=== PATIENT | female | born 1940 | race Caucasian/White ===

== ENCOUNTER → 2018-04-14 | Outpatient (CLI) | payer MEDICARE, OTHER ==
[~2018-04-14] MED LIST: CHLO25TA22 PO; POTASSIUM CHLORIDE PO
--- NOTE | 2018-04-14 12:59 | Diagnostic Imaging Report ---
INDICATION: Routine screening. COMPARISON: 06/01/2014 and 05/28/2013. TECHNIQUE: 2D and 3D bilateral screening mammography was performed with CAD. FINDINGS: Both breasts remain heterogeneously dense, limiting the sensitivity of mammography. There is a focal density in the right breast on the CC view just lateral to the nipple line at mid depth. This appears to be superiorly located on the MLO view. Additional views are recommended. The left breast is unremarkable. There are benign calcifications present. No suspicious calcifications are seen. The axillae are unremarkable. IMPRESSION: Right breast density. Additional views and ultrasound are recommended for further evaluation. ACR BI-RADS Category 0: Incomplete. (Needs additional imaging evaluation). Result letter will be mailed to the patient. Note: At least 10% of breast cancer is not imaged by mammography. Dictated by: Dictated on workstation # [id number]
== END ==
LOC: RAD 11:30
PROVIDERS: ATTEND Nurse Practitioner Family
DX: Z12.31 Encounter for screening mammogram for malignant neoplasm of breast (principal); R92.2 Inconclusive mammogram
CPT/HCPCS: 77067

== ENCOUNTER → 2018-04-20 | Outpatient (CLI) | payer MEDICARE, OTHER ==
--- NOTE | 2018-04-21 19:29 | Diagnostic Imaging Report ---
Indication: Right breast density. Patient presents for additional views. Correlation is made with recent screening study from 04/14/2018. 2-D and 3-D unilateral right diagnostic mammography was performed with CAD. This included conventional 90 degree lateral view as well as spot compression ML and CC views. The additional views demonstrate persistent nodular density in the upper and outer aspects of the right breast at mid depth. No suspicious calcifications are seen. No other masses are identified. Impression: BI-RADS 0. Persistent circumscribed density in the upper outer right breast mid depth. Further evaluation with ultrasound is recommended. ACR BI-RADS Category 0: Incomplete. (Needs additional imaging evaluation). Result letter will be mailed to the patient. Note: At least 10% of breast cancer is not imaged by mammography. Dictated by: Dictated on workstation # [id number]
--- NOTE | 2018-04-21 19:35 | Diagnostic Imaging Report ---
Indication: Right breast density. This study is performed for further evaluation. Correlation is made with diagnostic mammogram earlier the same day. Sonographic interrogation of the upper outer right breast approximately 4-5 cm from the nipple was performed. There is a lymph node at the 10 o'clock location 5 cm from the nipple measuring 6 mm x 3 mm x 4 mm. This does correlate in size and location to the density noted mammographically. No other abnormality is seen. Impression: BI-RADS 2 Intraparenchymal lymph node 10 o'clock location of the right breast corresponding to the mammographic density. The patient may return to routine annual screening mammography. ACR BI-RADS Category 2: Benign findings. Result letter will be mailed to the patient. Note: At least 10% of breast cancer is not imaged by mammography. Dictated by: Dictated on workstation # [id number]
== END ==
LOC: RAD 13:39
PROVIDERS: ATTEND Nurse Practitioner Family
DX: R92.2 Inconclusive mammogram (principal)

== ENCOUNTER 2019-03-27 10:25 | Emergency (ER) | payer MEDICARE, OTHER ==
[~2019-03-27] VITALS: Ht 167.7 cm; Wt 59.1 kg
--- NOTE | 2019-03-27 10:53 | ED Headache ---
General Chief Complaint: Head/Cervical Problems Stated Complaint: FALL - HEAD PAIN Nursing Triage Note: pt amb to rm 10 with complaint of head injury. pt states she fell yesterday at home on gravel. states had no loc. denies being on blood thinners. pt is concered about swelling on forehead. states she was sent over by [facility]. Nursing Sepsis Screen: No Definite Risk Source: patient Exam Limitations: no limitations History of Present Illness Date Seen by Provider: Mar 27, 2019 Time Seen by Provider: 10:48 Initial Comments To ER with reports of a head injury. [place] after tripping. She struck the forehead, the upper and lower lips. She is not on blood thinners. The fall occurred yesterday, no loss of consciousness no headache no nausea no vomiting no confusion. She is concerned because her had a brain bleed. Severity/Quality: moderate Location: frontal Prior Headaches/Recent Trauma: head trauma > 24 hrs ago Associated Symptoms: No nausea/vomiting Allergies and Home Medications Allergies Coded Allergies: No Known Drug Allergies (Unverified , 10/27/12) Home Medications Chlorthalidone 25 Mg Tablet, 25 MG PO DAILY, (Reported) [Potassium Chloride] , 10 MEQ PO DAILY, (Reported) Patient Home Medication List Home Medication List Reviewed: Yes Review of Systems Review of Systems Constitutional: see HPI Eyes: No Symptoms Reported Ears, Nose, Mouth, Throat: no symptoms reported Respiratory: no symptoms reported Cardiovascular: no symptoms reported Genitourinary: no symptoms reported Musculoskeletal: no symptoms reported Skin: no symptoms reported Psychiatric/Neurological: No Symptoms Reported Past Hxouedk-Djwoiy-Ttucbh Hx Patient Social History Alcohol Use: Occasionally Uses Alcohol Beverage of Choice: Beer Recreational Drug Use: No Smoking Status: Never a Smoker Recent Foreign Travel: No Contact w/Someone Who Travel: No Recent Infectious Disease Expo: No Recent Hopitalizations: No Physical Abuse: No Sexual Abuse: No Mistreated: No Fear: No Immunizations Up To Date Tetanus Booster (TDap): Unknown PED Vaccines UTD: Yes Seasonal Allergies Seasonal Allergies: No Past Medical History Surgeries: Yes Eye Surgery, Orthopedic Respiratory: No Cardiac: Yes High Cholesterol, Hypertension Neurological: No Gastrointestinal: No Musculoskeletal: Yes (ARTHRITIS) Endocrine: No Integumentary: No Physical Exam Vital Signs Vital Signs - First Documented 03/27/19 10:35 Temp 36.5 Pulse 66 Resp 17 B/P (MAP) 168/82 (110) Pulse Ox 98 O2 Delivery Room Air Capillary Refill : Less Than 3 Seconds Height, Weight, BMI Height: '" Weight: lbs. oz. kg; 21.00 BMI Method: General Appearance: WD/WN, no apparent distress HEENT: PERRL/EOMI, normal ENT inspection, TMs normal, other (small ecchymosis to the center of the forehead, abrasion to the midline top lip and midline bottom lip. No malocclusion of the jaw) Neck: non-tender, full range of motion; No tender lateral, No tender midline Respiratory: normal breath sounds, no respiratory distress, no accessory muscle use Gastrointestinal: normal bowel sounds, non tender Extremities: normal range of motion, non-tender Psychiatric: alert, oriented x 3 Crainal Nerves: normal hearing, normal speech, PERRL Skin: normal color, warm/dry Progress/Results/Core Measures Results/Orders My Orders Orders - JARED MONTANO APRN Ct Head/Cervical Spine Wo (03/27/19 10:48) Vital Signs/I&O 03/27/19 10:35 Temp 36.5 Pulse 66 Resp 17 B/P (MAP) 168/82 (110) Pulse Ox 98 O2 Delivery Room Air Blood Pressure Mean: 110 Departure Impression Primary Impression: Minor head injury Qualified Codes: S09.90XA - Unspecified injury of head, initial encounter Disposition: 01 HOME, SELF-CARE Condition: Stable Departure-Patient Inst. Decision time for Depature: 10:52 Referrals: JOANA CHAVEZ MD (PCP/Family) Primary Care Physician Patient Instructions: Minor Head Injury Add. Discharge Instructions: 1. Return to ER for any concerns 2. Follow-up with your doctor next week 3. All discharge instructions reviewed with patient and/or family. Voiced understanding. JARED MONTANO APRN Mar 27, 2019 10:52
--- NOTE | 2019-03-27 11:18 | Diagnostic Imaging Report ---
PROCEDURE: CT head without contrast. TECHNIQUE: Multiple contiguous axial images were obtained through the brain without the use of intravenous contrast. Auto Exposure Controls were utilized during the CT exam to meet ALARA standards for radiation dose reduction. INDICATION: Fall with swelling to the forehead. No prior studies are available for comparison. The ventricles and sulci are consistent with the patient's age. There is moderate periventricular hypodensity noted consistent with senescent change. No sulcal effacement or midline shift is detected. No acute intra-axial or extra-axial hemorrhage is identified. No calvarial fracture is seen. There is mild soft tissue swelling in the right frontal scalp. Visualized paranasal sinuses are clear. IMPRESSION: 1. Mild frontal scalp swelling. 2. No acute intracranial process is detected. Dictated by: Dictated on workstation # [id number]
[2019-03-27 11:25] VITALS: BP 168/82
== END 2019-03-27 11:25 | disposition home or self-care (01) ==
LOC: EDUNIT# 10:25 → ER 10:26
DX: S09.90XA Unspecified injury of head, initial encounter (principal); I10 Essential (primary) hypertension; E78.00 Pure hypercholesterolemia, unspecified; W01.0XXA Fall on same level from slipping, tripping and stumbling without subsequent striking against object, initial encounter; Y92.79 Other farm location as the place of occurrence of the external cause
CPT/HCPCS: 70450

== ENCOUNTER → 2019-05-31 | Outpatient (CLI) | payer MEDICARE, OTHER ==
--- NOTE | 2019-05-31 11:05 | Diagnostic Imaging Report ---
INDICATION: Routine screening. COMPARISON: 04/14/2018 and 06/01/2014. TECHNIQUE: 2D and 3D bilateral screening mammography was performed with CAD. FINDINGS: Both breasts are heterogeneously dense, limiting the sensitivity of mammography. A previously noted density in the outer right breast on the prior mammogram has significantly decreased in size. No new mass or malignant appearing microcalcifications are seen. The axillae are unremarkable. IMPRESSION: No mammographic features suspicious for malignancy are identified. ACR BI-RADS Category 2: Benign findings. Result letter will be mailed to the patient. Note: At least 10% of breast cancer is not imaged by mammography. Dictated by: Dictated on workstation # [id number]
== END ==
LOC: RAD 09:17
PROVIDERS: ATTEND Nurse Practitioner Family
DX: Z12.31 Encounter for screening mammogram for malignant neoplasm of breast (principal)
CPT/HCPCS: 77067

== ENCOUNTER → 2019-06-15 | Outpatient (CLI) | payer MEDICARE, OTHER ==
--- NOTE | 2019-06-15 10:26 | Diagnostic Imaging Report ---
INDICATION: Postmenopausal screening for osteoporosis. COMPARISON: 08/04/2008. FINDINGS: AP Spine L1-L4: [BMD (g/cm2): 0.862] [T-Score: -2.8] [Z-Score: -0.8] [BMD Previous: 1.033] [BMD % Change: -16.6] LT Hip Neck: [BMD (g/cm2): 0.690] [T-Score: -2.5] [Z-Score: -0.3] LT Hip Total: [BMD (g/cm2):0.810] [T-Score:-1.6] [Z-Score: 0.5] [BMD Previous: 0.898] [BMD % Change: -9.8] RT Hip Neck: [BMD (g/cm2):0.725] [T-Score:-2.3] [Z-Score:0.0] RT Hip Total: [BMD (g/cm2):0.844] [T-score:-1.3] [Z-Score:0.8] [BMD Previous:0.902] [BMD % Change:-6.4] *Indicates significant change from prior examination based on 95% confidence level. World Health Organization criteria for BMD interpretation classify patients as Normal (T-score at or above -1.0), Osteopenic (T-score between -1.0 and -2.5) or Osteoporotic (T-score at or below -2.5). LIMITATIONS AND MODIFICATION: None. FRACTURE RISK (FRAX SCORE): The ten year probability of (%): Major Osteoporotic Fracture: [23.7] Hip Fracture: [8.1] IMPRESSION: 1. Osteoporosis. 2. Bone mineral density has decreased by a statistically significant amount, as detailed above. 3. See below National Osteoporosis Foundation guidelines on when to potentially initiate pharmacologic therapy. Based on the National Osteoporosis Foundation Guidelines, pharmacologic treatment should be initiated in any of the following, unless clinical conditions suggest otherwise: * Any patient with prior fragility fracture of the hip or vertebrae. A spine fracture indicates 5X risk for subsequent spine fracture and 2X risk for subsequent hip fracture. * Osteoporosis (T-score <-2.5). * Postmenopausal women and men age 50 and older with low bone mass/osteopenia (T-score between -1.0 and -2.5) by DXA and 10-year major osteoporotic fracture greater than 20% or a 10-year probability of hip fracture greater than 3%. These fracture risks are supplied above in the FRAX score, if applicable. * Clinician judgement and/or patient preferences may indicate treatment for people with 10-year fracture probabilities above or below these levels. Dictated by: Dictated on workstation # [id number]
== END ==
LOC: RAD 09:15
PROVIDERS: ATTEND Family Medicine
DX: M19.041 Primary osteoarthritis, right hand (principal); M19.042 Primary osteoarthritis, left hand; M81.0 Age-related osteoporosis without current pathological fracture
CPT/HCPCS: 77080

== ENCOUNTER → 2020-06-22 | Outpatient (CLI) | payer MEDICARE, OTHER ==
--- NOTE | 2020-06-22 13:54 | Diagnostic Imaging Report ---
Indication: Routine screening. Correlation is made with prior mammogram from 05/31/2019 and 04/14/2018. 2-D and 3-D bilateral screening mammography was performed CAD Both breasts are heterogeneously dense, limiting the sensitivity of mammography. Parenchymal pattern appears stable. No dominant mass or malignant appearing microcalcifications are seen. Axillae are unremarkable. IMPRESSION: BI-RADS Category 1 No mammographic features suspicious for malignancy are identified. ACR BI-RADS Category 1: Negative. Result letter will be mailed to the patient. Note: At least 10% of breast cancer is not imaged by mammography. Dictated by: Dictated on workstation # [id number]
== END ==
LOC: RAD 11:21
PROVIDERS: ATTEND Nurse Practitioner Family
DX: Z12.31 Encounter for screening mammogram for malignant neoplasm of breast (principal)
CPT/HCPCS: 77063; 77067

== ENCOUNTER → 2021-07-03 | Outpatient (CLI) | payer MEDICARE, OTHER ==
--- NOTE | 2021-07-03 11:43 | Diagnostic Imaging Report ---
INDICATION: 83-year-old postmenopausal female. COMPARISON: 06/15/2019 FINDINGS: AP Spine L1-L4: [BMD (g/cm2): 0.995] [T-Score: -1.7] [Z-Score: 0.2] [BMD Previous: 0.862] [BMD % Change: 15.4] LT Hip Neck: [BMD (g/cm2): 0.752] [T-Score: -2.1] [Z-Score: 0.2] LT Hip Total: [BMD (g/cm2):0.866] [T-Score:-1.1] [Z-Score: 1.0] [BMD Previous: 0.810] [BMD % Change: 6.9] RT Hip Neck: [BMD (g/cm2):0.743] [T-Score:-2.1] [Z-Score:0.1] RT Hip Total: [BMD (g/cm2):0.864] [T-score:-1.1] [Z-Score:1.0] [BMD Previous:0.844] [BMD % Change:2.4] *Indicates significant change from prior examination based on 95% confidence level. World Health Organization criteria for BMD interpretation classify patients as Normal (T-score at or above -1.0), Osteopenic (T-score between -1.0 and -2.5) or Osteoporotic (T-score at or below -2.5). LIMITATIONS AND MODIFICATION: None. FRACTURE RISK (FRAX SCORE): The ten year probability of (%): Major Osteoporotic Fracture: [22.0] Hip Fracture: [6.7] IMPRESSION: 1. Osteopenia (Low bone mass). 2. There has been a statistically significant increase in BMD since prior exam, detailed above. 3. See below National Osteoporosis Foundation guidelines on when to potentially initiate pharmacologic therapy. Based on the National Osteoporosis Foundation Guidelines, pharmacologic treatment should be initiated in any of the following, unless clinical conditions suggest otherwise: * Any patient with prior fragility fracture of the hip or vertebrae. A spine fracture indicates 5X risk for subsequent spine fracture and 2X risk for subsequent hip fracture. * Osteoporosis (T-score <-2.5). * Postmenopausal women and men age 50 and older with low bone mass/osteopenia (T-score between -1.0 and -2.5) by DXA and 10-year major osteoporotic fracture greater than 20% or a 10-year probability of hip fracture greater than 3%. These fracture risks are supplied above in the FRAX score, if applicable. * Clinician judgement and/or patient preferences may indicate treatment for people with 10-year fracture probabilities above or below these levels. Dictated by: Dictated on workstation # [id number]
== END ==
LOC: CARD 09:01
PROVIDERS: ATTEND Nurse Practitioner Family
DX: I35.1 Nonrheumatic aortic (valve) insufficiency (principal); I35.8 Other nonrheumatic aortic valve disorders; I51.7 Cardiomegaly; M81.0 Age-related osteoporosis without current pathological fracture
CPT/HCPCS: 77080; 93306

== ENCOUNTER → 2021-07-25 | Outpatient (CLI) | payer MEDICARE, OTHER ==
--- NOTE | 2021-07-25 11:27 | Diagnostic Imaging Report ---
Indication: Routine screening. Comparison is made with prior mammogram from 06/22/2020 and 05/31/2019. 2-D and 3-D bilateral screening mammography was performed with CAD. Both breasts are heterogeneously dense, limiting the sensitivity of mammography. Benign calcifications are noted. No mass or malignant-appearing microcalcifications are seen. Axillae are unremarkable. IMPRESSION: BI-RADS Category 2 No mammographic features suspicious for malignancy are identified. ACR BI-RADS Category 2: Benign findings. Result letter will be mailed to the patient. Note: At least 10% of breast cancer is not imaged by mammography. Dictated by: Dictated on workstation # [id number]
== END ==
LOC: RAD 10:30
PROVIDERS: ATTEND Family Medicine
DX: Z12.31 Encounter for screening mammogram for malignant neoplasm of breast (principal)
CPT/HCPCS: 77063; 77067

== ENCOUNTER → 2021-08-17 | Outpatient (CLI) | payer MEDICARE, OTHER ==
[~2021-08-17] MED LIST changes: +REGADENOSON 0.4 MG/5 ML SYR (LEXISCAN) IV ONE
[2021-08-17] MEDS: CATHETER FLUSH 10 ML SYR IVP PRN ×2 (08:12→09:39)
[2021-08-17 09:35] VITALS: BP 156/76
--- NOTE | 2021-08-19 15:38 | STRESS TEST ---
DATE OF SERVICE: 08/17/2021 RESTING AND POST REGADENOSON TECHNETIUM-99M TETROFOSMIN SPECT CT IMAGING ORDERING PHYSICIAN: Dr. Carranza. PRIMARY PHYSICIAN: Dr. Rojo. CLINICAL DIAGNOSIS: Shortness of breath. Baseline images were carried out after injection of 10.98 mCi of technetium-99m Tetrofosmin. This was followed by 0.4 mg regadenoson and 28.4 mCi of technetium-99m Tetrofosmin for stress imaging. The electrocardiogram showed sinus rhythm at baseline. Isolated premature ventricular contractions were seen on this study. The electrocardiogram did not change significantly with regadenoson infusion. The patient tolerated the procedure well. Review of images at rest and following stress does not indicate any distinct perfusion defects consistent with significant myocardial ischemia or infarction. Gated images show normal global left ventricular systolic function with normal regional wall motion. Left ventricular ejection fraction is calculated to be 72%. CONCLUSIONS: 1. No evidence of significant myocardial ischemia or infarction on this study. 2. Normal regional wall motion. 3. Normal global left ventricular systolic function with a calculated ejection fraction of 72% to 72%. Job ID: [id number] DocumentID: [id number] Dictated Date: 08/19/2021 14:35:22 Ruffling Machine Operator Date: 08/19/2021 15:37:11 Dictated By: TOO CARRANZA MD, MA, FACP, FACC,
== END ==
LOC: CARD 08:15
PROVIDERS: ATTEND Internal Medicine Cardiovascular Disease
DX: R06.02 Shortness of breath (principal)
CPT/HCPCS: 78452; 93017; A9502

== ENCOUNTER → 2022-08-28 | Outpatient (CLI) | payer MEDICARE, OTHER ==
[~2022-08-28] MED LIST changes: -REGADENOSON 0.4 MG/5 ML SYR (LEXISCAN) IV ONE
--- NOTE | 2022-08-28 20:23 | Diagnostic Imaging Report ---
INDICATION: Routine screening. COMPARISON: Prior mammogram from 07/25/2021 and 06/22/2020. EXAMINATION: 2D and 3D bilateral screening mammography was performed with CAD. The current study was also evaluated with a Computer Aided Detection (CAD) system. FINDINGS: Both breasts are heterogeneously dense, limiting the sensitivity of mammography. The overall parenchymal pattern is stable. No mass or malignant-appearing microcalcifications are seen. Axillae are unremarkable. IMPRESSION: No mammographic feature suspicious for malignancy is identified. ACR BI-RADS Category 1: Negative. Result letter will be mailed to the patient. Note: At least 10% of breast cancer is not imaged by mammography. Dictated by: Dictated on workstation # [id number]
== END ==
LOC: RAD 15:06
PROVIDERS: ATTEND Nurse Practitioner Family
DX: Z12.31 Encounter for screening mammogram for malignant neoplasm of breast (principal)
CPT/HCPCS: 77063; 77067